=== PATIENT | male | born 1965 | race Caucasian/White ===

== ENCOUNTER 2017-06-28 07:21 | Outpatient (CLI) | payer OTHER ==
[2017-06-28 07:51] LABS: Bilirubin Negative (Negative); Blood, Urine Negative (Negative); Glucose, Urine (Dipstick) Negative (Negative); Ketone, Urine Negative (Negative); Nitrite Negative (Negative); Protein, Urine (Dipstick) Negative (Neg-Trace)
[2017-06-28 07:53] LABS: Bacteria/HPF None Seen HPF (None Seen); Hyaline Casts/LPF 0-3 HYALINE CAST LPF (0-3 Hyaline); RBC/HPF 0-3 HPF (0-3); Squamous Epithelial None Seen HPF (0-3); WBC/HPF None Seen HPF (0-3)
[2017-06-28 08:10] LABS: BUN (Urea Nitrogen) 14 mg/dL (8.4-25.7); Calc. Creatinine Clearance 0 mL/min (70-130); Calcium 10.3 mg/dL (7.8-10.44); Carbon Dioxide 27 mmol/L (22-29); Chloride 106 mmol/L (98-107); Estimated GFR-MDRD 83
[2017-06-28 08:23] LABS: Anion Gap 12 mmol/L (10-20)
--- NOTE | 2017-06-28 09:25 | CT ---
CT ABDOMEN AND PELVIS WITH AND WITHOUT CONTRAST: Date: 06/28/17 Multiple axial tomograms obtained through abdomen and pelvis without IV enhancement. This was followe d by post IV contrast images obtained in portal venous and delayed venous phase following a urographi c protocol. HISTORY: Hematuria. Comparison made to pre and postcontrast abdomen and pelvis CT dated 04/12/[address] chest of 07/26/16 . FINDINGS: Images through the lung bases again show numerous small pulmonary nodules. These were described on CT of chest of 07/26/16. Elective follow-up noncontrast chest CT is recommended to confirm stability of the previously described pulmonary nodules. Review of the urinary tract on the precontrast study shows no evidence of urinary tract calculus. The re is no evidence of hydronephrosis. Bladder is mildly distended and appears unremarkable. On postcontrast images, both kidneys show equal function and enhancement. No renal mass lesion seen. On the delayed sequence, there is contrast seen in the collecting structures. There is no evidence of mucosal filling defect. Review of the bladder on the delayed sequence shows mild distention. There is a questionable area of mucosal asymmetry in the floor of the bladder on the right near the right UVJ. A mucosal lesions is n ot completely excluded at this location and recommend cystoscopy. The liver, spleen, and pancreas appear unremarkable. Adrenal glands are unremarkable. Bowel loops are unremarkable. Nonspecific periaortic lymph nodes are seen. There is an enlarged aortocaval node in the mid abdomen which measures up to 1.5 cm. This lymph node is stable from the 2016 study. There are other nonspecif ic periaortic lymph nodes seen. An anterior aortocaval node is seen measuring 1.8 cm, also a stable f inding. There are numerous other periaortic lymph nodes which are up to 1.0 cm and appear stable. Aor ta shows atherosclerotic change, but is normal caliber. Diverticulosis of the sigmoid colon. Osseous structures appear unremarkable. IMPRESSION: 1. Numerous pulmonary nodules seen on images through the lung bases. These have been described on pr ior chest CT of 07/26/16. Elective follow-up noncontrast chest CT is recommended to confirm stability . 2. Images of the bladder show slight mucosal irregularity. Posterior bladder on the right near the r ight UVJ. This is only seen on the delayed sequence. Recommend cystoscopy to further evaluate for muc osal lesion at this location. 3. Urinary tract otherwise unremarkable. 4. Nonspecific retroperitoneal adenopathy which appears stable. 5. Diverticulosis of the sigmoid colon. POS: [facility]
== END 2017-06-28 07:22 | disposition home or self-care (01) ==
LOC: CT 07:21
PROVIDERS: ATTEND Urology
DX: R82.8 Abnormal findings on cytological and histological examination of urine (principal); R91.8 Other nonspecific abnormal finding of lung field; R59.0 Localized enlarged lymph nodes; K57.30 Diverticulosis of large intestine without perforation or abscess without bleeding
CPT/HCPCS: 36415; 74178; 80048; 81001; 87086; 88112; 88121

== ENCOUNTER 2018-01-01 10:03 | Day surgery (SDC) | payer OTHER ==
[2017-12-29 09:33] VITALS: BMI 25.9
[2018-01-01] MEDS ORDERED: Lidocaine 2% 10 ML INJ ONE (11:36)
[2018-01-01] MEDS ORDERED: Bupivacaine/Epinephrine 0.25% 30 ML VIAL ONE (11:36)
[2018-01-01] MEDS ORDERED: Lidocaine 2% Jelly 5 ML TUBE ONE (11:36)
[2018-01-01] MEDS ORDERED: Midazolam HCl 2 mg/2 ml Vial ONE (11:44)
[2018-01-01] MEDS ORDERED: Fentanyl 100 MCG/2 ML VIAL ONE (11:44)
[2018-01-01] MEDS ORDERED: PROPOFOL 200 MG/20 ML VIAL ONE (13:53)
[2018-01-01] MEDS ORDERED: Dexamethasone 20 MG/5 ML VIAL ONE (13:53)
[2018-01-01] MEDS ORDERED: Ondansetron HCl/PF 4 MG/2 ML Vial ONE (13:53)
[2018-01-01] MEDS ORDERED: Lidocaine 1% PF 5 ML VIAL ONE (13:53)
[2018-01-01] MEDS ORDERED: Ibuprofen 100 MG/5 ML UDCUP ONE (14:01)
[2018-01-01] MEDS ORDERED: Ibuprofen 800 MG TAB PO SCH (14:15)
--- NOTE | 2018-01-02 12:38 | OP ---
DATE OF PROCEDURE: 01/01/2018 PREOPERATIVE DIAGNOSIS: Internal and external hemorrhoid bleeding. POSTOPERATIVE DIAGNOSIS: Internal and external hemorrhoid bleeding. PROCEDURE: Internal and external hemorrhoidectomy. SURGEON: Ag Merida M.D. ANESTHESIA: General. ESTIMATED BLOOD LOSS: Minimal. COMPLICATIONS: None. SPECIMEN: Hemorrhoid. TECHNIQUE: The patient was taken to the operating room, placed supine on the table. After general a nesthetic was obtained, the perineum is prepped and draped in a sterile fashion. The cautery is used to ellipse out the skin around the hemorrhoid at its base. LigaSure was used to remove the hemorrho id. The sphincter muscle was not involved and not injured. The hemorrhoid was sent to pathology. T he upper part of the burn wound is oversewn using Vicryl. Gelfoam and lidocaine jelly is packed in t he anal canal. The patient is en route to recovery in stable condition. All instrument counts, need le counts, lap counts are correct.
== END 2018-01-01 14:47 | disposition home or self-care (01) ==
LOC: SDC 10:03
PROVIDERS: ATTEND Surgery
PROC: 06BY0ZC Excision of Hemorrhoidal Plexus, Open Approach (ICD-10-PCS; principal; 2018-01-01)
DX: K64.8 Other hemorrhoids (principal); K64.4 Residual hemorrhoidal skin tags; I10 Essential (primary) hypertension; F41.8 Other specified anxiety disorders; Z79.899 Other long term (current) drug therapy
CPT/HCPCS: 88304; J1100; J2001; J2250; J2405; J2704; J3010

== ENCOUNTER 2018-07-06 08:55 | Outpatient (CLI) | payer OTHER ==
--- NOTE | 2018-07-06 12:01 | CT ---
CT OF ABDOMEN AND PELVIS PERFORMED WITH INTRAVENOUS CONRAST ENHANCEMENT: HISTORY: Gross hematuria. Abnormal urine cytology. COMPARISON: CT of abdomen and pelvis that was performed 06/28/2017. CT of the chest performed 07/26/2016. FINDINGS: The lung bases show some linear atelectatic change. There are small pulmonary nodules seen. The lar gest nodule is an 8 mm nodule in the right middle lobe. In reviewing the prior chest CT of 07/06/2016 , I do not see that there is a significant interval change from these noncalcified nodules. The liver, spleen, pancreas, and gallbladder regions appear unremarkable. The right and left adrenal glands and right and left kidneys are normal in size. No renal calculi. No masses are identified. No obstruction. Small periaortic, aortocaval, and mesenteric nodes are present but appear stable as compared to the p rior study. CT of pelvis performed with and without contrast enhancement. The appendix is normal. There is no s ignificant pelvic lymphadenopathy or mass. The bladder is not fully distended but appears slightly t hickened. On the axial views, there is some slight asymmetry to the left, but I think this is just r elated to under distention and impression of the sigmoid colon. There are prostate calcifications pr esent. Minimal sigmoid diverticulosis is noted. No lytic or blastic bony change. IMPRESSION: 1. Stable small pulmonary nodules as compared to a 2016 exam. 2. No evidence of renal calculi or mass. Mild bladder wall thickening. 3. Minimal sigmoid diverticulosis. POS: [facility]
[2018-07-06] MEDS ORDERED: ISOVUE-370 76%-LOCM 1 ML ONE (13:29)
== END 2018-07-06 08:56 | disposition home or self-care (01) ==
LOC: BICCT 08:55
PROVIDERS: ATTEND Urology
DX: R31.0 Gross hematuria (principal); R82.8 Abnormal findings on cytological and histological examination of urine; K57.30 Diverticulosis of large intestine without perforation or abscess without bleeding; N32.89 Other specified disorders of bladder; R91.8 Other nonspecific abnormal finding of lung field
CPT/HCPCS: 74178

== ENCOUNTER 2019-12-10 06:39 | Outpatient (CLI) | payer OTHER ==
[2019-12-10 18:04] LABS: SARS-CoV-2 MS2 Positive; SARS-CoV-2 N Gene Negative; SARS-CoV-2 S Gene Negative; SARS-CoV-2 orf1ab Negative
--- NOTE | 2019-12-10 20:27 | EKG ---
Test Reason : Blood Pressure : / mmHG Vent. Rate : 056 BPM Atrial Rate : 056 BPM P-R Int : 134 ms QRS Dur : 096 ms QT Int : 416 ms P-R-T Axes : 068 052 038 degrees QTc Int : 401 ms Sinus bradycardia Otherwise normal ECG When compared with ECG of 12-MAY-2016 17:15, No significant change was found Confirmed by BETO HERNANDEZ, DR. Anne ([id number]) on 12/10/2019 8:26:45 PM Referred By: FABIEN Confirmed By:DR. Dayana PÉREZ MD
== END 2019-12-10 06:40 | disposition home or self-care (01) ==
LOC: LABBT 06:39
PROVIDERS: ATTEND Surgery
DX: Z01.818 Encounter for other preprocedural examination (principal); Z11.59 Encounter for screening for other viral diseases; K60.3 Anal fistula
CPT/HCPCS: 87635; 93005; 93010; U0003

== ENCOUNTER 2019-12-12 07:43 | Day surgery (SDC) | payer OTHER ==
[2019-12-10 11:34] VITALS: BMI 28.3
[2019-12-12] MEDS ORDERED: Bupivacaine 0.25% HCL 30 ML VIAL ONE (09:58)
[2019-12-12] MEDS ORDERED: Fentanyl 100 MCG/2 ML VIAL ONE (09:58)
[2019-12-12] MEDS ORDERED: Lidocaine 2% Jelly 5 ML TUBE ONE (09:58)
[2019-12-12] MEDS ORDERED: Lidocaine 1% w/Epinephrine 1:100K 20 ML VIAL ONE (09:58)
--- NOTE | 2019-12-12 12:03 | OP ---
DATE OF PROCEDURE: 12/12/2019 PREOPERATIVE DIAGNOSES: 1. Anal fistula, transsphincteric. 2. External and internal hemorrhoids x2. POSTOPERATIVE DIAGNOSES: 1. Anal fistula, transsphincteric. 2. External and internal hemorrhoids x2. PROCEDURE: 1. Fistulotomy with seton placement. 2. External and internal hemorrhoidectomy x2. ANESTHESIA: General. ESTIMATED BLOOD LOSS: None. COMPLICATIONS: None. SPECIMEN: Hemorrhoid. DESCRIPTION OF PROCEDURE: The patient was taken to the operating room and laid supine on the operative table. After general anesthetic was obtained, he was placed in lithotomy position. His perineal area was prepped and draped in a sterile fashion. The location of open wound in the perineal area was probed. The probe passed all the way into the anal canal just above the dentate line. The wound was open from the outside toward the end. It does appear to traverse to the external sphincter muscle. The wound was opened at the most external parts and the granulation tissue cauterized. It was open toward the sphincter muscle to where it traversed the sphincter muscle. In this location, a cutting seton of heavy silk was passed through the tunnel and tied in a loop. There was no ongoing bleeding. No damage to the sphincter muscle. The patient also had two chronically irritated and swollen external internal hemorrhoids in the left posterior right posterolateral locations. These were removed using sharp dissection and LigaSure. Care was taken to avoid injury to the muscle underneath. On the left side, there was a small amount of bleeding, so the Vicryl was used to suture the mucosal defect. On the right, there was no bleeding. No suture was placed. Gel-Foam and lidocaine jelly was packed in the anal canal. The patient was sent to Recovery in stable condition. All instrument counts, needle counts, and lap counts were correct. Job ID: [id number]
[2019-12-12] MEDS ORDERED: Labetalol HCl 100 MG/20 ML VIAL ONE (12:23)
[2019-12-12] MEDS ORDERED: hydrALAZINE 20 MG/ML VIAL ONE (12:28)
[2019-12-12] MEDS ORDERED: Lidocaine 1% PF 5 ML VIAL ONE (13:10)
[2019-12-12] MEDS ORDERED: Ondansetron PF 4 MG/2 ML Vial ONE (13:10)
[2019-12-12] MEDS ORDERED: Dexamethasone 20 MG/5 ML VIAL ONE (13:10)
[2019-12-12] MEDS ORDERED: PROPOFOL 200 MG/20 ML VIAL ONE (13:10)
[2019-12-12] MEDS ORDERED: Rocuronium Bromide 10 MG/ML (10ML VIAL) ONE (13:10)
[2019-12-12] MEDS ORDERED: Ketorolac Tromethamine 30 MG/ML VIAL ONE (13:10)
[2019-12-12] MEDS ORDERED: Ondansetron ODT 4 MG TAB ONE (14:22)
== END 2019-12-12 14:25 | disposition home or self-care (01) ==
LOC: SDC 07:43
PROVIDERS: ATTEND Surgery
PROC: 06BY4ZC Excision of Hemorrhoidal Plexus, Percutaneous Endoscopic Approach (ICD-10-PCS; principal; 2019-12-12)
PROC: 0DBQ3ZZ Excision of Anus, Percutaneous Approach (ICD-10-PCS; principal; 2019-12-12)
DX: K60.3 Anal fistula (principal); K64.4 Residual hemorrhoidal skin tags; K64.8 Other hemorrhoids; Z79.899 Other long term (current) drug therapy
CPT/HCPCS: 88304; J0360; J0694; J1100; J1885; J2001; J2405; J2704; J3010; Q0162; S0020

== ENCOUNTER 2020-07-07 06:28 | Outpatient (CLI) | payer BC, OTHER ==
[2020-07-07 18:17] LABS: SARS-CoV-2 MS2 Positive; SARS-CoV-2 N Gene Positive; SARS-CoV-2 by NAA DETECTED (NotDetected); SARS-CoV-2 orf1ab Positive
[2020-07-07 18:30] LABS: SARS-CoV-2 S Gene Negative
== END 2020-07-07 06:29 | disposition home or self-care (01) ==
LOC: LABBT 06:28
PROVIDERS: ATTEND Surgery
DX: U07.1 COVID-19 (principal); Z01.812 Encounter for preprocedural laboratory examination; K60.3 Anal fistula
CPT/HCPCS: 87635; U0003

== ENCOUNTER 2020-11-03 17:46 | Outpatient (CLI) | payer BC ==
[2020-11-04 06:02] LABS: SARS-CoV-2 PCR by NAA Not Detected (NotDetected)
== END 2020-11-03 17:47 | disposition home or self-care (01) ==
LOC: LABBT 17:46
PROVIDERS: ATTEND Surgery
DX: Z01.818 Encounter for other preprocedural examination (principal); K60.3 Anal fistula; Z20.822 Contact with and (suspected) exposure to COVID-19
CPT/HCPCS: 87635; 93005; 93010; U0003; U0005

== ENCOUNTER 2020-11-06 09:38 | Day surgery (SDC) | payer BC ==
[2020-11-05 11:31] VITALS: BMI 26.6
[2020-11-06] MEDS ORDERED: Bupivacaine 0.25% HCL 30 ML VIAL ONE (11:47)
[2020-11-06] MEDS ORDERED: Lidocaine 0.5%/Epinephrine 1:200,000 50 ml Vial ONE (11:47)
[2020-11-06] MEDS ORDERED: Lidocaine 2% w/Epinephrine 1:200K 20 ML VIAL ONE (11:47)
[2020-11-06] MEDS ORDERED: Lidocaine 2% Jelly 5 ML TUBE ONE (11:48)
[2020-11-06] MEDS ORDERED: Midazolam HCl 2 mg/2 ml Vial ONE (11:50)
[2020-11-06] MEDS ORDERED: Fentanyl 100 MCG/2 ML VIAL ONE (11:50)
[2020-11-06] MEDS ORDERED: Lidocaine 1% PF 5 ML VIAL ONE (12:05)
[2020-11-06] MEDS ORDERED: PROPOFOL 200 MG/20 ML VIAL ONE (12:05)
[2020-11-06] MEDS ORDERED: Dexamethasone 20 MG/5 ML VIAL ONE (12:05)
[2020-11-06] MEDS ORDERED: Ondansetron PF 4 MG/2 ML Vial ONE (12:05)
[2020-11-06] MEDS ORDERED: Ketorolac Tromethamine 30 MG/ML VIAL ONE (12:05)
[2020-11-06] MEDS ORDERED: Glycopyrrolate 0.2 MG/ML 5 ML SYRINGE ONE (12:05)
[2020-11-06] MEDS ORDERED: HYDROcodone/Acetaminophen 5/325 mg Tablet ONE (13:16)
== END 2020-11-06 14:47 | disposition home or self-care (01) ==
LOC: SDC 09:38
PROVIDERS: ATTEND Surgery
PROC: 0DQQ7ZZ Repair Anus, Via Natural or Artificial Opening (ICD-10-PCS; principal; 2020-11-06)
DX: K60.3 Anal fistula (principal); I10 Essential (primary) hypertension; F17.210 Nicotine dependence, cigarettes, uncomplicated; Z79.899 Other long term (current) drug therapy; Z88.8 Allergy status to other drugs, medicaments and biological substances
CPT/HCPCS: J0690; J1100; J1885; J2001; J2250; J2405; J2704; J3010; S0020

== ENCOUNTER 2022-12-14 08:26 | Outpatient (CLI) | payer BC | END 2022-12-14 08:27 | disposition home or self-care (01) | LOC: RAD 08:26 | PROVIDERS: ATTEND Internal Medicine Critical Care Medicine | DX: R06.00 Dyspnea, unspecified (principal) | CPT/HCPCS: 71046 ==

== ENCOUNTER 2024-01-24 07:47 | Outpatient (CLI) | payer BC | END 2024-01-24 07:48 | disposition home or self-care (01) | LOC: RAD 07:47 | PROVIDERS: ATTEND Internal Medicine Critical Care Medicine | DX: R06.00 Dyspnea, unspecified (principal) | CPT/HCPCS: 71046 ==